=== PATIENT | male | born 1960 | race Caucasian/White ===

== ENCOUNTER → 2018-01-29 | Outpatient (CLI) | payer OTHER ==
[~2018-01-29] MED LIST: CLONIDINE0.2 MG PO; HYDROCHLOROTH12.5 M2 PO; LISINOPRIL20 MG PO; PRAVASTATIN SOD20 MG PO
== END | disposition home or self-care (01) ==
LOC: RAD 08:29
DX: R05 Cough (principal); I10 Essential (primary) hypertension; F17.200 Nicotine dependence, unspecified, uncomplicated

== ENCOUNTER → 2018-01-29 | Day surgery (SDC) | payer OTHER ==
[~2018-01-29] VITALS: Ht 172.7 cm; Wt 104.3 kg
--- NOTE | ~2018-01-29 | PROC NOTE ---
[place], [place] PROCEDURE NOTE NAME: ROSSI MIDDLETON UNIT #: [id number] ROOM: DOCTOR: BERT JIMENEZ MD BIRTHDATE: [birth year] DOS: 01/29/2018 PREOPERATIVE DIAGNOSIS: Screening examination. POSTOPERATIVE DIAGNOSIS: Screening examination. PROCEDURE: Colonoscopy. ENDOSCOPIST: Bert Jimenez MD FRESCO ARTIST: KATHY. ANESTHESIA: MAC. INDICATIONS: This is a 57-year-old gentleman who is here for a screening examination. The procedure and its complications were explained to the patient in detail preoperatively. Complications that were discussed included but were not limited to bleeding, colon perforation, and missed lesions. He agreed to proceed. DESCRIPTION OF PROCEDURE: After identifying the patient, the patient was brought to the endoscopy suite and placed in the left lateral position. After IV sedation was administered, a timeout procedure was called and a digital rectal exam was performed. This was within normal limits. An adult colonoscope was now introduced into the anal canal and advanced sequentially into the rectum, sigmoid colon, descending colon, transverse colon and ascending colon up to the cecum. Upon reaching the cecum, the scope was withdrawn. Total withdrawal time was approximately 7 minutes. The colon was found to be completely normal in its entirety. After the scope was withdrawn, the patient was taken to the recovery room in stable fashion. Based on these findings, the patient is recommended to have another colonoscopy in 10 years or sooner if he develops new symptoms. These findings were discussed with the patient's in the recovery room. There were no complications. Bert Jimenez MD CM:PROCNOTE:PROCEDURE NOTE [id number] BERT JIMENEZ MD
[2018-01-29 09:00] VITALS: BP 168/90
[2018-01-29 10:30] VITALS: BP 117/55
[2018-01-29 10:40] VITALS: BP 118/74
[2018-01-29 10:51] VITALS: BP 124/82
== END ==
LOC: SDC 01-25 12:30
DX: Z12.11 Encounter for screening for malignant neoplasm of colon (principal); F17.210 Nicotine dependence, cigarettes, uncomplicated; M19.90 Unspecified osteoarthritis, unspecified site; I10 Essential (primary) hypertension; Z98.890 Other specified postprocedural states; Z79.899 Other long term (current) drug therapy